=== PATIENT | male | born 2000 | race African-American/Black ===

== ENCOUNTER 2020-01-04 21:02 | Day surgery (SDC) | payer OTHER ==
--- NOTE | 2020-01-04 21:17 | PDOC ---
History of Present Illness - General Chief Complaint: Pain, Acute Stated Complaint: "I have Pain in my stomach that goes to my back" Time Seen by Provider: 01/04/20 21:10 History Source: Patient Exam Limitations: No Limitations - History of Present Illness Initial Comments: 01/04/20 21:38 19-year-old male who comes in complaining of intermittent gas pains in his stomach however no pain right now. In addition to that he is also complaining of some lower abdominal pain only when he urinates. Patient said he has history of similar pain in the past approximately 1 year ago and saw his primary care doctor who did an ultrasound and told him it might be kidney stones but did not see any evidence on ultrasound of kidney stones. In addition to that he said he had a ultrasound of his testicles to rule out torsion at that time. Patient denies any testicular pain at this time. Patient denies any fevers, chills, nausea vomiting or diarrhea. Says he is sexually active however he has never had sex without a condom and denies any penile discharge or history of STDs in the past. Allergies: as per nursing notes Past Medical History: none Social history: Lives with family. No smoking. No alcohol. No illicit drugs. Surgical history: None General: No fevers or chills, no weakness, no weight loss HEENT: No change in vision. No sore throat,. No ear pain CardioVascular: no chest discomfort. No shortness of breath Respiratory:No cough, or wheezing. Gastrointestinal: no nausea, vomiting, diarrhea or constipation, No rectal bleeding or lower abdominal pain with urination Genitourinary: No dysuria, hematuria, or frequency Musculoskeletal: No joint or muscle pain or swelling Neurologic: No headache, vertigo, dizziness or loss of consciousness Psychiatric: nor depression Skin: No rashes or easy bruising Endocrine: no increased thirst or abnormal weight change Allergic: no skin or latex allergy All other systems reviewed and normal Exam: General: Well-nourished well-developed individual, no acute distress HEENT: Throat: Normal, tonsils normal, no erythema or exudate Neck: Supple, no meningeal signs, no lymphadenopathy Eyes::Pupils equal reactive and round, extraocular motion intact Chest: Nontender to palpation Cardiac: S1-S2 normal, regular rate and rhythm, no murmurs rubs or gallops Respiratory: Lungs clear to auscultation bilateral Abdomen: Soft, nondistended, normal bowel sounds, there is some mild tenderness on palpation lower abdomen suprapubic area, and to the right of the suprapubic area. No guarding or rebound bowel sounds are normal : Uncircumcised male with normal lay patient work-up included a CAT scan that was read as high suspicion of acute appendicitis to the testicles, normal cremaster reflex, no tender nodes or masses palpated on exam of the testicles. No penile discharge, no lymphadenopathy no lesions of the genitals or penis. Extremities: Warm, dry, no cyanosis, clubbing, or edema Skin: No rashes Neuro: Alert and oriented x3, CN II - XII intact, nonfocal exam with normal strength, normal sensation, normal reflexes, normal gait, Psych: Normal mood and affect Assessment and plan: This is a 19-year-old male with lower abdominal pain. CBC, comp, and UA were sent 01/05/20 00:52 patient work-up included a CAT scan that was read as high suspicion of acute appendicit Past History - Medical History Allergies/Adverse Reactions: Allergies Allergy/AdvReac Type Severity Reaction Status Date / Time No Known Allergies Allergy Unverified 01/04/20 21:03 Home Medications: Ambulatory Orders NK [No Known Home Medication] 01/04/20 COPD: No Other medical history: denies - Immunization History Immunization Up to Date: Yes - Psycho-Social/Smoking History Smoking History: Never smoked - Substance Abuse Hx (Audit-C & DAST Scrn) How often the patient has a drink containing alcohol: Monthly or less Score: In Men: 4 or > Positive; In Women: 3 or > Positive: 1 Screen Result (Pos requires Nsg. Audit-10AR): Negative In the last yr the pt used illegal drug/Rx for NonMed reason: No Score: Yes response is considered Positive: 0 Screen Result (Positive result requires Nsg. DAST-10): Negative *Physical Exam - Vital Signs Last Vital Signs Temp Pulse Resp BP Pulse Ox 98.7 F 77 18 144/82 100 01/04/20 21:05 01/04/20 21:05 01/04/20 21:05 01/04/20 21:05 01/04/20 21:05 ED Treatment Course - LABORATORY CBC & Chemistry Diagram: 01/04/20 21:50 01/04/20 21:38 Discharge - Discharge Information Problems reviewed: Yes Clinical Impression/Diagnosis: Appendicitis Condition: Stable - Admission Yes - Follow up/Referral Referrals: Eric Black MD [Primary Care Provider] - - Patient Discharge Instructions - Post Discharge Activity
[2020-01-04 22:04] LABS: EOS % 0.3 % (0-4.5)
[2020-01-04 22:05] LABS: LYMPH % 10.3 % (8-40)
[2020-01-04 22:09] LABS: HEMATOCRIT 43.6 % (35.4-49); HEMOGLOBIN 14.8 GM/dl (11.7-16.9); MCH 30.1 pg (25.7-33.7); MCHC 33.9 g/dl (32.0-35.9); MEAN CELL VOLUME 88.8 fl (80-96); MEAN PLT VOLUME 8.8 fl (7.5-11.1); NEUT % 76.5 % (42.8-82.8); PLATELET COUNT 212 K/MM3 (134-434); RBC 4.91 M/mm3 (4.00-5.60); RDW 12.5 % (11.9-15.9)
[2020-01-04 22:10] LABS: BASO % 3.4 % (0-2.0); MONO % 9.5 % (3.8-10.2)
[2020-01-04 22:22] LABS: ALBUMIN 4.2 g/dl (3.4-5.0); BILIRUBIN,TOTAL 1.4 mg/dl (0.2-1); CALCIUM 9.3 mg/dl (8.5-10); CREATININE 1.3 mg/dl (0.55-1.3); POTASSIUM 3.7 mmol/L (3.5-5.1); TOT PROT 7.5 g/dl (6.4-8.2)
[2020-01-05] MEDS ORDERED: PIPERACILLIN/TAZOB 4.5 GM 4.5 GM in DEXTROSE 5%-WATER 100 ML IVPB ONE (00:44)
[2020-01-05] MEDS ORDERED: PIPERACILLIN/TAZOBACTAM 4.5 GM VIAL IVPB ONE (00:45)
[2020-01-05] MEDS ORDERED: morphine CARPU-JECT 2 MG/1 ML DISP.SYRIN IVPUSH ONE (00:51)
[2020-01-05] MEDS ORDERED: SODIUM CHLORIDE 1,000 ML IV ONE (00:51)
[2020-01-05] MEDS ORDERED: morphine SULFATE 4 MG/ML VIAL ONE (00:52)
[2020-01-05] MEDS ORDERED: ACETAMINOPHEN 1000 MG/100 ML VIAL (NON FORMULARY) IVPB PRN ×2 (01:20→18:39)
[2020-01-05] MEDS: LACTATED RINGERS SOLUTION 1,000 ML IV SCH ×2 (01:27→17:08)
--- OUTSIDE RECORDS SUMMARY | 2020-01-05 02:35 | XMS ---
:2000 Author Organization [facility] Support Name Relationship Address Phone VICKIE GONSALEZ FATHER [phone] [place] [address] OG Unavailable Unavailable Unavailable Re-disclosure Warning The records that you are about to access may contain information from federally- assisted alcohol or drug abuse programs. If such information is present, then the following federally mandated warning applies: This information has been disclosed to you from records protected by federal confidentiality rules (42 CFR part 2). The federal rules prohibit you from making any further disclosure of this information unless further disclosure is expressly permitted by the written consent of the person to whom it pertains or as otherwise permitted by 42 CFR part 2. A general authorization for the release of medical or other information is NOT sufficient for this purpose. The Federal rules restrict any use of the information to criminally investigate or prosecute any alcohol or drug abuse patient.The records that you are about to access may contain highly sensitive health information, the redisclosure of which is protected by Article 27-F of the [facility] Public Health law. If you continue you may haveaccess to information: Regarding HIV / AIDS; Provided by facilities licensed or operated by the [facility] Office of Mental Health; or Provided by the [facility] Office for People With Developmental Disabilities. If such information is present, then the following [facility] mandated warning applies: This information has been disclosed to you from confidential records which are protected by state law. State law prohibits you from making any further disclosure of this information without the specific written consent of the person to whom it pertains, or as otherwise permitted by law. Any unauthorized further disclosure in violation of state law may result in a fine or correction sentence or both. A general authorization for the release of medical or other information is NOT sufficient authorization for further disclosure. Insurance Providers Payer name Policy type Policy ID Covered Covered democrat's Policy P shara / Coverage democrat ID relationship to Sainz Inf ormation type sainz AETNA HMO [id number] SELF PAY SP INSURANCE
[2020-01-05 03:02] LABS: INR 1.31 (0.83-1.09); PROTHROMBIN TIME (PATIENT) 15.3 SEC (9.7-13.0)
[2020-01-05 04:24] VITALS: BMI 27.3
[2020-01-05 08:14] LABS: CALCIUM 9.2 mg/dl (8.5-10); CREATININE 1.4 mg/dl (0.55-1.3); POTASSIUM 4.1 mmol/L (3.5-5.1)
[2020-01-05 08:30] LABS: BASO % 0.4 % (0-2.0); EOS % 0.8 % (0-4.5); HEMATOCRIT 43.4 % (35.4-49); HEMOGLOBIN 14.1 GM/dl (11.7-16.9); LYMPH % 10.8 % (8-40); MCH 29.1 pg (25.7-33.7); MCHC 32.5 g/dl (32.0-35.9); MEAN CELL VOLUME 89.6 fl (80-96); MEAN PLT VOLUME 9.5 fl (7.5-11.1); MONO % 9.3 % (3.8-10.2); NEUT % 78.7 % (42.8-82.8); PLATELET COUNT 203 K/MM3 (134-434); RBC 4.84 M/mm3 (4.00-5.60); RDW 12.8 % (11.9-15.9)
[2020-01-05] MEDS ORDERED: PIPERACILLIN/TAZOB 3.375 GM 3.375 GM in DEXTROSE 5%-WATER - 50 ML IVPB SCH ×4 (09:00→19:00)
[2020-01-05] MEDS ORDERED: PIPERACILLIN/TAZOBACTAM 3.375 GM VIAL IVPB ONE ×3 (09:10→20:39)
[2020-01-05] MEDS ORDERED: DEXTROSE 5%-WATER - 50 ML IVPB ONE ×3 (09:10→20:39)
--- NOTE | 2020-01-05 09:39 | HP ---
CHIEF COMPLAINT: Abdominal pain PCP: Dr. Eric Black HISTORY OF PRESENT ILLNESS: 19 year-old male with no significant PMH presented to the ED for evaluation of intermittent stomach pain and lower abdominal pain on urination. Patient said he has history of similar pain in the past approximately 1 year ago and saw his primary care doctor who did an ultrasound and told him it might be kidney stones but did not see any evidence on ultrasound of kidney stones. In addition to that he said he had a ultrasound of his testicles to rule out torsion at that time. Patient denies any fevers, chills, nausea vomiting or diarrhea. Says he is sexually active however he has never had sex without a condom and denies any penile discharge or history of STDs in the past. ER course was notable for: (1) WBC 12.0k, afebrile Recent Travel: No PAST MEDICAL HISTORY: None reported PAST SURGICAL HISTORY: None reported Social History: [employer] student living in [facility] Smoking: no Alcohol: no Drugs: no Family history: reviewed and non-contributory Allergies No Known Allergies Allergy (Unverified 01/04/20 21:03) HOME MEDICATIONS: Home Medications Medication Instructions Recorded NK [No Known Home Medication] 01/04/20 REVIEW OF SYSTEMS CONSTITUTIONAL: Absent: fever, chills, diaphoresis, generalized weakness, malaise, loss of appetite, weight change HEENT: Absent: rhinorrhea, nasal congestion, throat pain, throat swelling, difficulty swallowing, mouth swelling, ear pain, eye pain, visual changes CARDIOVASCULAR: Absent: chest pain, syncope, palpitations, irregular heart rate, lightheadedness, peripheral edema RESPIRATORY: Absent: cough, shortness of breath, dyspnea with exertion, orthopnea, wheezing, stridor, hemoptysis GASTROINTESTINAL: +abdominal pain Absent: abdominal distension, nausea, vomiting, diarrhea, constipation, melena, hematochezia GENITOURINARY: Absent: dysuria, frequency, urgency, hesitancy, hematuria, flank pain, genital pain MUSCULOSKELETAL: Absent: myalgia, arthralgia, joint swelling, back pain, neck pain SKIN: Absent: rash, itching, pallor HEMATOLOGIC/IMMUNOLOGIC: Absent: easy bleeding, easy bruising, lymphadenopathy, frequent infections ENDOCRINE: Absent: unexplained weight gain, unexplained weight loss, heat intolerance, cold intolerance NEUROLOGIC: Absent: headache, focal weakness or paresthesias, dizziness, unsteady gait, seizure, mental status changes, bladder or bowel incontinence PSYCHIATRIC: Absent: anxiety, depression, suicidal or homicidal ideation, hallucinations. PHYSICAL EXAMINATION Vital Signs - 24 hr 01/04/20 01/05/20 01/05/20 21:05 02:09 04:08 Temperature 98.7 F 98.8 F 99 F Pulse Rate 77 80 Pulse Rate [ 76 Left] Respiratory 18 16 18 Rate Blood Pressure 144/82 135/69 Blood Pressure 132/75 [Right Arm] O2 Sat by Pulse 100 100 99 Oximetry (%) 01/05/20 06:27 Temperature 99.0 F Pulse Rate 72 Pulse Rate [ Left] Respiratory 18 Rate Blood Pressure 132/64 Blood Pressure [Right Arm] O2 Sat by Pulse 98 Oximetry (%) GENERAL: Awake, alert, and fully oriented, in no acute distress. HEAD: Normal with no signs of trauma. EYES: Pupils equal, round and reactive to light, extraocular movements intact, sclera anicteric, conjunctiva clear. No lid lag. EARS, NOSE, THROAT: Ears normal, nares patent, oropharynx clear without exudates. Moist mucous membranes. NECK: Normal range of motion, supple without lymphadenopathy, JVD, or masses. LUNGS: Breath sounds equal, clear to auscultation bilaterally. No wheezes, and no crackles. No accessory muscle use. HEART: Regular rate and rhythm, normal S1 and S2 without murmur, rub or gallop. ABDOMEN: Soft, mild lower abdominal tenderness R>L MUSCULOSKELETAL: Normal range of motion at all joints. No bony deformities or tenderness. No CVA tenderness. UPPER EXTREMITIES: 2+ pulses, warm, well-perfused. No cyanosis. No clubbing. No peripheral edema. LOWER EXTREMITIES: 2+ pulses, warm, well-perfused. No calf tenderness. No periph eral edema. NEUROLOGICAL: Cranial nerves II-XII intact. Normal speech. Laboratory Results - last 24 hr 01/04/20 01/04/20 01/04/20 21:38 21:50 22:08 WBC 12.0 H RBC 4.91 Hgb 14.8 Hct 43.6 MCV 88.8 MCH 30.1 MCHC 33.9 RDW 12.5 Plt Count 212 MPV 8.8 Absolute Neuts (auto) 9.3 Neutrophils % 76.5 Lymphocytes % 10.3 Monocytes % 9.5 Eosinophils % 0.3 Basophils % 3.4 H PT with INR INR Sodium 132 L Potassium 3.7 Chloride 97 L Carbon Dioxide 25 Anion Gap 10 BUN 10.0 Creatinine 1.3 Est GFR (CKD-EPI)AfAm 90.40 Est GFR (CKD-EPI)NonAf 78.00 Random Glucose 89 Calcium 9.3 Total Bilirubin 1.4 H AST 54 H ALT 69 H Alkaline Phosphatase 92 Total Protein 7.5 Albumin 4.2 Urine Color Yellow Urine Appearance Clear Urine pH 6.0 Urine Protein Trace Urine Glucose (UA) Negative Urine Ketones 2+ H Urine Blood Negative Urine Nitrite Negative Urine Bilirubin Negative Urine Urobilinogen 2.0 Ur Leukocyte Esterase Negative Blood Type Antibody Screen 01/05/20 01/05/20 01/05/20 01:17 01:17 07:18 WBC 10.0 RBC 4.84 Hgb 14.1 Hct 43.4 MCV 89.6 MCH 29.1 MCHC 32.5 RDW 12.8 Plt Count 203 MPV 9.5 Absolute Neuts (auto) 7.9 Neutrophils % 78.7 Lymphocytes % 10.8 Monocytes % 9.3 Eosinophils % 0.8 D Basophils % 0.4 PT with INR 15.30 H INR 1.31 H Sodium Potassium Chloride Carbon Dioxide Anion Gap BUN Creatinine Est GFR (CKD-EPI)AfAm Est GFR (CKD-EPI)NonAf Random Glucose Calcium Total Bilirubin AST ALT Alkaline Phosphatase Total Protein Albumin Urine Color Urine Appearance Urine pH Urine Protein Urine Glucose (UA) Urine Ketones Urine Blood Urine Nitrite Urine Bilirubin Urine Urobilinogen Ur Leukocyte Esterase Blood Type O POSITIVE Antibody Screen Negative 01/05/20 07:18 WBC RBC Hgb Hct MCV MCH MCHC RDW Plt Count MPV Absolute Neuts (auto) Neutrophils % Lymphocytes % Monocytes % Eosinophils % Basophils % PT with INR INR Sodium 133 L Potassium 4.1 Chloride 97 L Carbon Dioxide 24 Anion Gap 12 BUN 11.0 Creatinine 1.4 H Est GFR (CKD-EPI)AfAm 82.65 Est GFR (CKD-EPI)NonAf 71.31 Random Glucose 79 Calcium 9.2 Total Bilirubin AST ALT Alkaline Phosphatase Total Protein Albumin Urine Color Urine Appearance Urine pH Urine Protein Urine Glucose (UA) Urine Ketones Urine Blood Urine Nitrite Urine Bilirubin Urine Urobilinogen Ur Leukocyte Esterase Blood Type Antibody Screen ASSESSMENT/PLAN: 19 year-old male with no significant PMH admitted for acute appendicitis. Acute appendicitis --repeat CT with contrast is strongly suggestive of acute appendicitis --perioperative antibiotics ordered, ID following --COVID pending so patient needs to be transferred to [facility] for sugery; plan is to go to OR later today with Dr. Charleen CALVIN Fluids: LR@125mL/hr Electrolytes: replete as indicated Nutrition: NPO Dispo: awaiting transfer to [facility]. Full code. Family Medical History Family History: As Documented Visit type - Emergency Visit Emergency Visit: Yes ED Registration Date: 01/05/20 Care time: The patient presented to the Emergency Department on the above date and was hospitalized for further evaluation of their emergent condition. - New Patient This patient is new to me today: Yes Date on this admission: 01/05/20 - Critical Care Critical Care patient: No
[2020-01-05] MEDS ORDERED: MIDAZOLAM HCL 2 MG/2 ML SINGLE DOSE VIAL ONE (16:31)
[2020-01-05] MEDS ORDERED: fentaNYL CITRATE 250 MCG/5 ML VIAL ONE (16:31)
[2020-01-05] MEDS ORDERED: ROCURONIUM BROMIDE 50 MG/5 ML SYRINGE ONE ×2 (16:31→17:48)
[2020-01-05] MEDS ORDERED: PROPOFOL 20 ML ONE ×2 (16:31→17:49)
[2020-01-05] MEDS ORDERED: SUCCINYLCHOLINE CHLORIDE 200 MG/10 ML SYRINGE ONE (16:31)
[2020-01-05] MEDS ORDERED: PROMETHAZINE HCL 25 MG/1 ML VIAL IVPUSH PRN (17:22)
[2020-01-05] MEDS ORDERED: ONDANSETRON 4 MG/2 ML VIAL IVPUSH PRN ×2 (17:22→19:56)
[2020-01-05] MEDS ORDERED: LACTATED RINGERS SOLUTION 1,000 ML IV SCH ×2 (17:30→19:57)
[2020-01-05] MEDS ORDERED: BUPIVACAINE HCL/PF 0.5% (5MG/ML) 10 ML VIAL IJ ONE (17:43)
--- OUTSIDE RECORDS SUMMARY | 2020-01-05 17:43 | XMS ---
:2000 Author Organization [facility] Support Name Relationship Address Phone OG, STUDENT Unavailable Unavailable Unavailable [place] [address] OG Unavailable Unavailable Unavailable Re-disclosure Warning The [...] is protected by Article 27-F of the [facility] Public Health law. If you continue you may haveaccess to information: Regarding HIV / AIDS; Provided by facilities licensed or operated by the [facility] Office of Mental Health; or Provided by the [facility] Office for People With Developmental Disabilities. If such information is present, then the following [facility] mandated warning applies: This information has [...] law may result in a fine or retirement sentence or both. A general authorization for the release of medical or other information is NOT sufficient authorization for further disclosure. Insurance Providers Payer name Policy type Policy ID Covered Covered libertarian's Policy P shara / Coverage libertarian ID relationship to Sainz Inf ormation type sainz AETNA O [id number] SP [id number] SELF PAY SP INSURANCE
--- OUTSIDE RECORDS SUMMARY | 2020-01-05 17:44 | XMS ---
:[address] [facility] Support Name Relationship Address Phone OG, STUDENT Unavailable Unavailable Unavailable [place] [address] OG Unavailable Unavailable Unavailable Re-disclosure Warning The [...] is protected by Article 27-F of the [facility] Public Health law. If you continue you may haveaccess to information: Regarding HIV / AIDS; Provided by facilities licensed or operated by the [facility] Office of Mental Health; or Provided by the [facility] Office for People With Developmental Disabilities. If such information is present, then the following [facility] mandated warning applies: This information [...] law may result in a fine or longterm sentence or both. A general authorization for the release of medical or other information is NOT sufficient authorization for further disclosure. Insurance Providers Payer name Policy type Policy ID Covered Covered constitution party's Policy P shara / Coverage constitution party ID relationship to Sainz Inf ormation type sainz AETNA O [id number] SP [id number] SELF PAY SP INSURANCE
[2020-01-05] MEDS ORDERED: KETOROLAC TROMETHAMINE 30 MG/1 ML VIAL ONE (17:47)
[2020-01-05] MEDS ORDERED: DEXAMETHASONE SOD PHOSPHATE 4 MG/1 ML VIAL ONE (17:47)
[2020-01-05] MEDS ORDERED: NEOSTIGMINE METHYLSULFATE 0.5 MG/ML - 10 ML MDV ONE (17:53)
[2020-01-05] MEDS ORDERED: GLYCOPYRROLATE 0.2 MG/1 ML VIAL ONE (17:53)
--- NOTE | 2020-01-05 17:58 | PN ---
Progress Note (short form) - Note Progress Note: ID CONSULT DICTATED
--- NOTE | 2020-01-05 18:11 | OP ---
Operative Note - Note: Operative Date: 01/05/20 Pre-Operative Diagnosis: Acute appendicitis Operation: laparoscopic appendectomy Post-Operative Diagnosis: Same as Pre-op Surgeon: Mukesh Ernst Medication Aide: Helen Lee Anesthesia: General Estimated Blood Loss (mls): 5 Operative Report Dictated: Yes
--- NOTE | 2020-01-05 18:22 | SURG ---
Surgery Supervisor Home Economics Note Supervisor Home Economics: Helen Lee PA-C Date of Service: 01/05/20 Diagnosis: : Acute appendicitis Procedure: laparoscopic appendectomy I was present for the entirety of the operative procedure. For further detail, please refer to operative report. Visit type - Case Type Case Type: ED Admission - Emergency Emergency Visit: Yes Care time: The patient presented to the Emergency Department on the above date and was hospitalized for further evaluation of their emergent condition. - New patient This patient is new to me today: Yes Date on this admission: 01/05/20
[2020-01-05] MEDS ORDERED: ACETAMINOPHEN INJECTION 100 ML IVPB ONE (18:28)
[2020-01-05] MEDS ORDERED: ACETAMINOPHEN 1000 MG/100 ML VIAL (NON FORMULARY) IVPB ONE (18:34)
[2020-01-05] MEDS ORDERED: MORPHINE SULFATE 2 MG/ML VIAL IVPUSH PRN (19:52)
[2020-01-05] MEDS ORDERED: KETOROLAC TROMETHAMINE 30 MG/1 ML VIAL IVPUSH PRN (19:53)
[2020-01-05] MEDS ORDERED: oxyCODONE HCL 5 MG TABLET PO PRN (19:56)
[2020-01-05] MEDS: PIPERACILLIN/TAZOB 3.375 GM 3.375 GM in DEXTROSE 5%-WATER - 50 ML IVPB SCH (21:26)
[2020-01-05] MEDS: HEPARIN NA (PORCINE) 5,000 UNITS/ML 1ML VIAL SQ SCH (21:26)
[2020-01-06] MEDS: ACETAMINOPHEN 1000 MG/100 ML VIAL (NON FORMULARY) IVPB SCH ×3 (00:42→14:08)
[2020-01-06] MEDS ORDERED: PT OWN MED DRAWER 7, Y5N ONE (01:21)
[2020-01-06] MEDS ORDERED: DEXTROSE 5%-WATER - 50 ML IVPB ONE ×2 (03:32→10:46)
[2020-01-06] MEDS ORDERED: PIPERACILLIN/TAZOBACTAM 3.375 GM VIAL IVPB ONE ×2 (03:32→10:46)
[2020-01-06] MEDS: PIPERACILLIN/TAZOB 3.375 GM 3.375 GM in DEXTROSE 5%-WATER - 50 ML IVPB SCH ×2 (03:46→11:00)
--- NOTE | 2020-01-06 07:13 | CONS ---
DATE OF CONSULTATION: DATE OF DICTATION: 01/05/2020 INFECTIOUS DISEASE CONSULTATION HISTORY OF PRESENT ILLNESS: The patient is a 19-year-old male previously healthy who is evaluated for acute appendicitis. The patient was admitted to the hospital on January 05, 2020, with complaints of abdominal pain. The patient had developed acute abdominal pain localized to the suprapubic area and right lower quadrant. He described it as gas pain. He reports persistent pain and pain on urination. He presented to the emergency room, where he was evaluated. A CAT scan was performed of the abdomen and pelvis and was consistent with acute appendicitis. His course was complicated by mild elevated white blood cell count. He was seen in consultation by Surgery and was scheduled for an appendectomy. At the present time he is awake and alert. He has complaints of abdominal pain localized to the suprapubic and right lower quadrant area. He denies any nausea or vomiting. His last bowel movement was prior to admission. He denies any diarrhea. PAST MEDICAL HISTORY: Negative. ALLERGIES: No known allergies. MEDICATIONS: Include Zosyn, heparin, morphine, oxycodone. SOCIAL HISTORY: He resides at home in the community. He is a student. Nonsmoker, nondrinker. SYSTEMS REVIEW: Neurologic: No loss of consciousness, seizure activity, focal weakness. Cardiac: Negative chest pain or palpitations. Respiratory: Negative cough or sputum production. Gastrointestinal: Negative vomiting or diarrhea. Genitourinary: Negative for urinary tract infection. LABORATORY DATA: White count on admission 12.0, presently 10.0, hematocrit 43.4, platelets 206. Creatinine 1.4, total bilirubin 1.4, alkaline phosphatase 92, AST 52, ALT 67. Urinalysis negative. COVID-19 serology pending. Blood and urine cultures pending. CAT scan of the abdomen and pelvis shows findings consistent with acute appendicitis with no evidence of perforation or abscess formation. PHYSICAL EXAMINATION: General: He is awake and alert. He is not acutely toxic appearing. Vital Signs: Temperature is 99.1, blood pressure 161/73, pulse 73, regular, respiration 20 per minute. HEENT: Sclerae are anicteric. Cardiac: Heart sounds S1-S2. Lungs: Clear. Abdomen: Soft. There is slight tenderness to palpation diffusely. No rebound or rigidity. Extremities: Negative for edema. IMPRESSION: 1. Acute appendicitis. 2. Leukocytosis. RECOMMENDATIONS: Await culture results. Empiric antibiotic coverage with Zosyn. Patient for appendectomy. Will follow. Thank you for the kind referral. RK OBANDO M.D. THERESE/[id number]
--- NOTE | 2020-01-06 08:01 | PN ---
Progress Note (short form) - Note Progress Note: GENERAL SURGERY POD #1 s/p Lap appendectomy Alert. OOB and ambulating without assistance. Voiding spontaneously. Tolerating clear diet Denies n/v/f/c, CP, palpitations, SOB or LUZ. Afebrile. AVSS. Gen: nad ABD: all surgical ports c/d/i. LE: soft. supple. nt. Problem List - Problems (1) Appendicitis Assessment/Plan: POD #1 s/p Lap Appy diet advanced to regular. cleared for dc home after tolerates diet. f/u with Dr. Ernst as outlined in dc plan. above plan d/w my attending and agrees. On behalf of Dr. Ernst, thank you for the opportunity to participate in your patient's care Code(s): K37 - UNSPECIFIED APPENDICITIS
--- NOTE | 2020-01-06 09:35 | PN ---
Physical Exam: SUBJECTIVE: Patient seen and examined at bedside. Denies acute complaints. Tolerating oral intake without nausea or vomiting. Urinating without dysuria, or hematuria. Passing flatus. Endorses pain is well controlled. Denies subjective fevers, chills. OBJECTIVE: Vital Signs Period Temp Pulse Resp BP Sys/Bass Pulse Ox Last 24 Hr 97.7 F-99.1 F 56-98 14-21 116-161/51-73 95-100 GENERAL: The patient is awake, alert, and fully oriented, in no acute distress. HEAD: Normocephalic, atraumatic. EYES: PERRL, extraocular movements intact, sclera anicteric, conjunctiva clear. ENT: Oropharynx clear, without erythema or exudates. Moist mucous membranes. NECK: Trachea midline, full range of motion. Supple without lymphadenopathy. LUNGS: Breath sounds equal, clear to auscultation bilaterally. No wheezes, no crackles. No accessory muscle use. HEART: Regular rate and rhythm. S1, S2 without murmur, rub or gallop. ABDOMEN: Soft, nondistended, nontender to light and deep palpation x4 quadrants. No rebound tenderness, no guarding. Normoactive bowel sounds x4 quadrants. No hepatosplenomegaly, no masses appreciated. EXTREMITIES: 2+ radial, dorsalis pedis pulses bilaterally. Warm, well-perfused. No lower extremity edema bilaterally. NEUROLOGICAL: Cranial nerves II through XII grossly intact. Normal speech. No gross focal deficits. PSYCH: Normal mood, normal affect upon my encounter. SKIN: Warm, dry. Laparoscopic trochar sites clean, dry, intact. Laboratory Results - last 24 hr 01/05/20 01:17 COVID-19 (GRACIA) Not detected Active Medications Generic Name Dose Route Start Last Admin Trade Name Parthq PRN Reason Stop Dose Admin Acetaminophen 1,000 mg 01/06/20 01:00 01/06/20 06:00 Ofirmev Injection - IVPB 01/06/20 13:01 1,000 mg Q6H MAURICE Administration Heparin Sodium (Porcine) 5,000 unit 01/05/20 22:00 01/05/20 21:26 Heparin - SQ 5,000 unit BID MAURICE Administration Piperacillin Sod/Tazobactam 50 mls @ 100 mls/hr 01/05/20 20:00 01/06/20 03:46 Sod 3.375 gm/ Dextrose IVPB 01/06/20 19:59 100 mls/hr Q8H MAURICE Administration Protocol Lactated Ringer's 1,000 mls @ 125 mls/hr 01/05/20 19:57 01/05/20 20:05 Lactated Ringers Solution IV 125 mls/hr ASDIR MAURICE Administration Morphine Sulfate 2 mg 01/05/20 19:52 Morphine Sulfate IVPUSH Q4H PRN PAIN LEVEL 7 - 10 Ondansetron HCl 4 mg 01/05/20 19:56 Zofran Injection IVPUSH Q6H PRN NAUSEA AND/OR VOMITING Oxycodone HCl 5 mg 01/05/20 19:56 01/05/20 21:45 Roxicodone - PO 5 mg Q6H PRN Administration PAIN LEVEL 4 - 6 ASSESSMENT/PLAN: Patient is a 19 year old male with no reported medical history presented with complaint of abdominal pain, admitted for acute appendicitis. Acute appendicitis -POD #1 s/p laparoscopic appendectomy with Dr. Villaseñor -Pain controlled with Acetaminophen, Oxycodone. Will discontinue Morphine to ensure transition to oral analgesics -Tolerating diet, passing flatus -Will confirm with ID regarding antibiotic duration. Does not appear there was abscess or perforation intraoperatively. Acute kidney injury -Suspect pre renal etiology. -Hydrating with IV Lactated Ringer's at 125mL/ hour -Patient voiding well without dysuria, or hematuria -Will repeat BMP today. If remains elevated, will obtain renal/ bladder ultrasound and Nephrology consult. Transaminitis -Currently denies abdominal pain. CT on admission did not reveal acute biliary dilation/ stones. -Obtain repeat labs, with direct bilirubin FEN -IV Lactated Ringer's at 125mL/ hour -Follow BMP -Regular diet Prophylaxis -Heparin 5000units subq Disposition -Continue care in medical surgical floor -Anticipate DC within 24 hours, pending repeat labs and resolution of WILLIAM, transaminitis Visit type - Emergency Visit Emergency Visit: Yes Care time: The patient presented to the Emergency Department on the above date and was hospitalized for further evaluation of their emergent condition. - New Patient This patient is new to me today: Yes Date on this admission: 01/06/20 - Critical Care Critical Care patient: No - Discharge Referral Referred to [facility] Med P.C.: No ATTENDING PHYSICIAN STATEMENT I saw and evaluated the patient. I reviewed the resident's note and discussed the case with the resident. I agree with the resident's findings and plan as documented. SUBJECTIVE: OBJECTIVE: ASSESSMENT AND PLAN:
[2020-01-06 10:00] LABS: HEMATOCRIT 40.9 % (35.4-49); HEMOGLOBIN 13.4 GM/dL (11.7-16.9); MCH 28.8 pg (25.7-33.7); MCHC 32.7 g/dl (32.0-35.9); MEAN CELL VOLUME 88.3 fl (80-96); MEAN PLT VOLUME 9.3 fl (7.5-11.1); PLATELET COUNT 213 K/MM3 (134-434); RBC 4.63 M/mm3 (4.00-5.60); RDW 13.3 % (11.9-15.9); WHITE BLOOD COUNT 11.1 K/mm3 (4.0-10.0)
[2020-01-06 10:31] LABS: ALBUMIN 2.9 g/dl (3.4-5.0); BILIRUBIN,TOTAL 1.3 mg/dL (0.2-1); BLOOD UREA NITROGEN 11.4 mg/dL (7-18); CALCIUM 9.1 mg/dL (8.5-10.1); CREATININE 1.4 mg/dL (0.55-1.3); MAGNESIUM 2.1 mg/dL (1.8-2.4); PHOSPHOROUS 4.7 mg/dL (2.5-4.9); POTASSIUM 4.6 mmol/L (3.5-5.1); TOT PROT 6.9 g/dl (6.4-8.2)
[2020-01-06] MEDS: HEPARIN NA (PORCINE) 5,000 UNITS/ML 1ML VIAL SQ SCH ×2 (10:54→21:12)
[2020-01-06 10:59] LABS: BILIRUBIN,DIRECT 0.5 mg/dL (0.0-0.2)
[2020-01-06] MEDS ORDERED: SODIUM CHLORIDE 1,000 ML IV SCH (12:15)
--- NOTE | 2020-01-06 13:57 | PN ---
Progress Note, Physician History of Present Illness: POD #1 LAPAROSCOPIC APPENDECTOMY DOING WELL NO C/O ABDOMINAL PAIN TOLERATED SOLID DIET NO N/V NO BM - Current Medication List Current Medications: Active Medications Heparin Sodium (Porcine) (Heparin -) 5,000 unit SQ BID MAURICE Last Admin: 01/06/20 10:54 Dose: Not Given Documented by: Piperacillin Sod/Tazobactam (Sod 3.375 gm/ Dextrose) 50 mls @ 100 mls/hr IVPB Q8H MAURICE; Protocol Stop: 01/06/20 19:59 Last Admin: 01/06/20 11:00 Dose: 100 mls/hr Documented by: Sodium Chloride (Normal Saline -) 1,000 mls @ 125 mls/hr IV ASDIR MAURICE Morphine Sulfate (Morphine Sulfate) 2 mg IVPUSH Q4H PRN PRN Reason: PAIN LEVEL 7 - 10 Ondansetron HCl (Zofran Injection) 4 mg IVPUSH Q6H PRN PRN Reason: NAUSEA AND/OR VOMITING Oxycodone HCl (Roxicodone -) 5 mg PO Q6H PRN PRN Reason: PAIN LEVEL 4 - 6 Last Admin: 01/05/20 21:45 Dose: 5 mg Documented by: - Objective Vital Signs: Vital Signs Temperature 98.2 F 01/06/20 10:52 Pulse Rate 71 01/06/20 10:52 Respiratory Rate 18 01/06/20 10:52 Blood Pressure 122/63 01/06/20 10:52 O2 Sat by Pulse Oximetry (%) 98 01/06/20 10:52 Constitutional: Yes: No Distress Eyes: Yes: Conjunctiva Clear Cardiovascular: Yes: Regular Rate and Rhythm, S1, S2 Respiratory: Yes: CTA Bilaterally Gastrointestinal: Yes: Normal Bowel Sounds, Soft. No: Tenderness Edema: No Labs: CBC, BMP 01/06/20 09:20 01/06/20 09:20 INR, PTT INR 1.31 (0.83-1.09) H 01/05/20 01:17 Assessment/Plan POD#1 APPENDECTOMY DOING WELL SUBSTITUTE AUGMENTIN 875MG PO BID X 7D
--- NOTE | 2020-01-06 16:15 | CONSULT ---
Consult Consult Specialty:: Nephrology Reason for Consultation:: hyponatremia and elevated blood or blood bank technician - History of Present Illness Chief Complaint: abd pain History of Present Illness: Pt is a 19 year old make with no pmhx who presents to the ER with abd pain. He was found to have appendicitis. He was take to the OR for appendectomy. He was found to have hyponatremia and I was called to evaluate him. He was also found to have elevated blood or blood bank technician. He says that he did not eat for a few days before admission secondary to abd pain. He denies shortness of breath, fever or chills. He was taking creatine and protein supplements in addition to eating regular food daily. He denies dysuria or hematuria. He denies personal or family hx of kidney disease. - History Source History Provided By: Patient - Smoking History Smoking history: Never smoked Home Medications - Allergies Allergies/Adverse Reactions: Allergies Allergy/AdvReac Type Severity Reaction Status Date / Time No Known Allergies Allergy Unverified 01/04/20 21:03 - Home Medications Home Medications: Ambulatory Orders Docusate Sodium [Colace] 100 mg PO BID #30 capsule 01/06/20 oxyCODONE HCL [Roxicodone -] 5 mg PO Q4H PRN #15 tablet MDD 6 01/06/20 Family Medical History Family History: Denies Review of Systems - Review of Systems Constitutional: reports: No Symptoms Eyes: reports: No Symptoms HENT: reports: No Symptoms Neck: reports: No Symptoms Cardiovascular: reports: No Symptoms Respiratory: reports: No Symptoms Gastrointestinal: reports: No Symptoms Genitourinary: reports: No Symptoms Musculoskeletal: reports: No Symptoms Integumentary: reports: No Symptoms Neurological: reports: No Symptoms Endocrine: reports: No Symptoms Hematology/Lymphatic: reports: No Symptoms Psychiatric: reports: No Symptoms Physical Exam Vital Signs: Vital Signs Temperature 97.5 F L 01/06/20 14:00 Pulse Rate 82 01/06/20 14:00 Respiratory Rate 18 01/06/20 14:00 Blood Pressure 120/68 01/06/20 14:00 O2 Sat by Pulse Oximetry (%) 98 01/06/20 14:00 Constitutional: Yes: Calm Eyes: Yes: Conjunctiva Clear HENT: Yes: Atraumatic Neck: Yes: Supple Cardiovascular: Yes: S1, S2 Respiratory: Yes: CTA Bilaterally Gastrointestinal: Yes: Normal Bowel Sounds, Soft, Other (surgical wounds open to air) Renal/: Yes: WNL Musculoskeletal: Yes: WNL Edema: No Neurological: Yes: Oriented Psychiatric: Yes: Oriented Labs: CBC, BMP 01/06/20 09:20 01/06/20 09:20 Imaging - Results Ultrasound: Report Reviewed Problem List - Problems (1) Hyponatremia Code(s): E87.1 - HYPO-OSMOLALITY AND HYPONATREMIA (2) Appendicitis Code(s): K37 - UNSPECIFIED APPENDICITIS Assessment/Plan Current Medications Generic Name Dose Route Start Last Admin Trade Name Freq PRN Reason Stop Dose Admin Amoxicillin/Clavulanate Potassium 1 tab 01/06/20 17:30 Augmentin - 875mg Tablet PO BID@0800,1730 MAURICE Heparin Sodium (Porcine) 5,000 unit 01/05/20 22:00 01/06/20 10:54 Heparin - SQ Not Given BID MAURICE Sodium Chloride 1,000 mls @ 125 mls/hr 01/06/20 12:15 01/06/20 14:02 Normal Saline - IV 125 mls/hr ASDIR MAURICE Administration Morphine Sulfate 2 mg 01/05/20 19:52 Morphine Sulfate IVPUSH Q4H PRN PAIN LEVEL 7 - 10 Ondansetron HCl 4 mg 01/05/20 19:56 Zofran Injection IVPUSH Q6H PRN NAUSEA AND/OR VOMITING Oxycodone HCl 5 mg 01/05/20 19:56 01/05/20 21:45 Roxicodone - PO 5 mg Q6H PRN Administration PAIN LEVEL 4 - 6 IMpression 1. hyponatremia 2. acute appendicitis 3. elevated blood or blood bank technician 4. elevated pvr 5. creatine and protein use Plan - change fluids to ns - pt tolerating diet, cont to monitor - repeat labs in am - repeat bladder scan tomorrow to ensure voiding - hyponatremia may have been from hypotonic fluids - sodium is improving
[2020-01-06] MEDS: AMOX TR/POT CLAV 875MG/125MG TABLETS (FP) PO SCH (17:22)
[2020-01-07 07:41] LABS: HEMATOCRIT 36.6 % (35.4-49); HEMOGLOBIN 11.9 GM/dL (11.7-16.9); MCH 28.8 pg (25.7-33.7); MCHC 32.6 g/dl (32.0-35.9); MEAN CELL VOLUME 88.3 fl (80-96); MEAN PLT VOLUME 9.1 fl (7.5-11.1); PLATELET COUNT 208 K/MM3 (134-434); RBC 4.15 M/mm3 (4.00-5.60); RDW 13.3 % (11.9-15.9); WHITE BLOOD COUNT 7.4 K/mm3 (4.0-10.0)
[2020-01-07 08:02] LABS: ALBUMIN 2.7 g/dl (3.4-5.0); BILIRUBIN,TOTAL 0.6 mg/dL (0.2-1); BLOOD UREA NITROGEN 10.3 mg/dL (7-18); CALCIUM 8.9 mg/dL (8.5-10.1); PHOSPHOROUS 2.9 mg/dL (2.5-4.9); TOT PROT 6.1 g/dl (6.4-8.2)
[2020-01-07] MEDS: AMOX TR/POT CLAV 875MG/125MG TABLETS (FP) PO SCH (08:46)
[2020-01-07] MEDS: HEPARIN NA (PORCINE) 5,000 UNITS/ML 1ML VIAL SQ SCH (10:36)
--- NOTE | 2020-01-07 12:59 | PN ---
Progress Note, Physician History of Present Illness: Pt seen and examined at bedside. He is awake and alert. He denies fever or chills. He denies abd pain. - Current Medication List Current Medications: Active Medications Amoxicillin/Clavulanate Potassium (Augmentin - 875mg Tablet) 1 tab PO BID@0800,1730 [facility] Last Admin: 01/07/20 08:46 Dose: 1 tab Documented by: Heparin Sodium (Porcine) (Heparin -) 5,000 unit SQ BID [facility] Last Admin: 01/07/20 10:36 Dose: Not Given Documented by: Ondansetron HCl (Zofran Injection) 4 mg IVPUSH Q6H PRN PRN Reason: NAUSEA AND/OR VOMITING Oxycodone HCl (Roxicodone -) 5 mg PO Q6H PRN PRN Reason: PAIN LEVEL 4 - 6 Last Admin: 01/05/20 21:45 Dose: 5 mg Documented by: - Objective Vital Signs: Vital Signs Temperature 98.4 F 01/07/20 05:42 Pulse Rate 60 01/07/20 05:42 Respiratory Rate 18 01/07/20 05:42 Blood Pressure 123/61 01/07/20 05:42 O2 Sat by Pulse Oximetry (%) 98 01/07/20 05:42 Constitutional: Yes: Calm Eyes: Yes: Conjunctiva Clear HENT: Yes: Atraumatic Neck: Yes: Supple Cardiovascular: Yes: S1, S2 Respiratory: Yes: CTA Bilaterally Gastrointestinal: Yes: Soft Genitourinary: Yes: WNL Musculoskeletal: Yes: WNL Edema: No Neurological: Yes: Oriented Psychiatric: Yes: Oriented Labs: CBC, BMP 01/07/20 06:40 01/07/20 06:40 INR, PTT INR 1.31 (0.83-1.09) H 01/05/20 01:17 Problem List - Problems (1) Hyponatremia Code(s): E87.1 - HYPO-OSMOLALITY AND HYPONATREMIA (2) Appendicitis Code(s): K37 - UNSPECIFIED APPENDICITIS Assessment/Plan Current Medications Generic Name Dose Route Start Last Admin Trade Name Freq PRN Reason Stop Dose Admin Amoxicillin/Clavulanate Potassium 1 tab 01/06/20 17:30 01/07/20 08:46 Augmentin - 875mg Tablet PO 1 tab BID@0800,1730 [facility] Administration Heparin Sodium (Porcine) 5,000 unit 01/05/20 22:00 01/07/20 10:36 Heparin - SQ Not Given BID MAURICE Ondansetron HCl 4 mg 01/05/20 19:56 Zofran Injection IVPUSH Q6H PRN NAUSEA AND/OR VOMITING Oxycodone HCl 5 mg 01/05/20 19:56 01/05/20 21:45 Roxicodone - PO 5 mg Q6H PRN Administration PAIN LEVEL 4 - 6 IMpression 1. hyponatremia 2. acute appendicitis 3. elevated broadcast operations technician 4. elevated pvr 5. creatine and protein use 6. dehydration Plan - sodium improved - broadcast operations technician is improved - instructed pt to avoid creatine supplements - pt is voiding without difficulty - can follow as outpt as needed - bladder scan shows 20 cc pvr
--- NOTE | 2020-01-07 13:52 | PN ---
Teaching Attending Note Name of Resident: Lesvia Vazquez ATTENDING PHYSICIAN STATEMENT I saw and evaluated the patient. I reviewed the resident's note and discussed the case with the resident. I agree with the resident's findings and plan as documented. SUBJECTIVE: no pain, no fever ro chills, no N.V . had BM, tolerated diet ( eating lunch ) OBJECTIVE: NAd, awake, alert, pleasant CV: RRR, no MRG Lungs: CTAB Abd:soft, NT, ND, nl BS . 3 small incisions at laparoscopic sites. no erythema or edema or tenderness at sites. No stitches ASSESSMENT AND PLAN: 19 y/o man with no PMH who presented with abd pain and was found to have acute appendicitis and WILLIAM and LFTs abn 1- Acute appendicitis s/p appendectomy 2- WILLIAM resolved 3- Abnormal LFTs, resolved plan : - cont Augmentin x 1 week - f/u with surgery in 1 week - oral hydration - asked him to avoid protein and over the counter supplements - f/u with PCP in 1 week - instructed to call MD or come to ER with abd distention, worsening pain, severe constipation, fever or vomiting. dc home
--- NOTE | 2020-01-07 15:06 | DS ---
Physical Exam: SUBJECTIVE: Patient seen and examined at bedside. One solid BM last night, passing gas, tolerating regular diet. OBJECTIVE: Vital Signs Period Temp Pulse Resp BP Sys/Bass Pulse Ox Last 24 Hr 98.4 F-98.7 F 60-65 18-18 123-139/59-61 98-98 PHYSICAL EXAM GENERAL: The patient is awake, alert, and fully oriented, in no acute distress. HEAD: Normal with no signs of trauma. EYES: PERRL, extraocular movements intact, sclera anicteric, conjunctiva clear. ENT: Ears normal, nares patent, oropharynx clear without exudates, moist mucous membranes. NECK: Trachea midline, full range of motion, supple. LUNGS: Breath sounds equal, clear to auscultation bilaterally, no wheezes, no crackles, no accessory muscle use. HEART: Regular rate and rhythm, S1, S2 without murmur, rub or gallop. ABDOMEN: Soft, nontender, nondistended, normoactive bowel sounds, no guarding, no rebound,+ 3 laparoscopic incision sites EXTREMITIES: 2+ pulses, warm, well-perfused, no edema. NEUROLOGICAL: Cranial nerves II through XII grossly intact. Normal speech, gait not observed. PSYCH: Normal mood, normal affect. SKIN: Warm, dry, normal turgor, no rashes or lesions noted. LABS Laboratory Results - last 24 hr 01/06/20 01/06/20 01/07/20 14:33 14:33 06:40 WBC 7.4 RBC 4.15 Hgb 11.9 Hct 36.6 MCV 88.3 MCH 28.8 MCHC 32.6 RDW 13.3 Plt Count 208 MPV 9.1 Sodium Potassium Chloride Carbon Dioxide Anion Gap BUN Creatinine Est GFR (CKD-EPI)AfAm Est GFR (CKD-EPI)NonAf Random Glucose Calcium Phosphorus Magnesium Total Bilirubin AST ALT Alkaline Phosphatase Total Protein Albumin Ur Random Creatinine 36.0 Ur Random Sodium < 18 L Ur Random Potassium 18.0 L Ur Random Chloride < 11 L 01/07/20 06:40 WBC RBC Hgb Hct MCV MCH MCHC RDW Plt Count MPV Sodium 139 Potassium 4.0 Chloride 108 H Carbon Dioxide 26 Anion Gap 5 L BUN 10.3 Creatinine 1.0 Est GFR (CKD-EPI)AfAm 124.14 Est GFR (CKD-EPI)NonAf 107.11 Random Glucose 78 Calcium 8.9 Phosphorus 2.9 Magnesium 2.0 Total Bilirubin 0.6 AST 26 ALT 48 Alkaline Phosphatase 92 Total Protein 6.1 L Albumin 2.7 L Ur Random Creatinine Ur Random Sodium Ur Random Potassium Ur Random Chloride HOSPITAL COURSE: Date of Admission:01/05/20 19 Y M man with no significant PMH, presented to [facility] with abd pain, CT imaging revealed acute appendicitis, admitted to [facility] for laparoscopic appendectomy with Dr. Ernst, Post surgery he was found to have an WILLIAM and elevated LFTs. Acute appendicitis s/p appendectomy POD #2. WILLIAM resolved. Abnormal LFTs, resolved. Patient is medically and surgically stable for discharge at this time. He is advised to cont Augmentin x 1 week and to f/u with surgery in 1 week. He is discharged home with the following instructions, referrals and prescriptions Date of Discharge: 01/07/20 Minutes to complete discharge: 36 Discharge Summary Problems reviewed: Yes Reason For Visit: APPENDICITIS Condition: Improved - Instructions Diet, Activity, Other Instructions: YOUR VISIT You came to the hospital because you were experiencing abdominal pain. You were admitted to the hospital for care of these symptoms. Imaging of your abdomen showed evidence of appendicitis. You were treated with antibiotics and you had a laparoscopic (camera guided) surgery with Dr. Villaseñor to remove your appendix. You are now stable and may return home. You blood work reveled elevated creatinine, marker for kidney injury, most likely due to lack of enough water in your body (dehydration). You were treated with intravenous fluids and your creatinine decreased to normal value. It is important to avoid creatine supplements. While here, you were seen by a kidney specialist and an infectious disease specialist. Please follow up with your primary care doctor to repeat blood work within 1 week from today. MEDICATIONS Please continue to take your home medications as prescribed. You have *NEW* medications. - Please Take AUGMENTIN 875MG two times daily for 7 days to complete your antibiotic regimen - Please Take Colace 100mg two times a day for constipation - Please Take Roxicodone 5mg Q4H or as needed for pain management ADDITIONAL CARE Please make an appointment to see your primary care provider, Eric Rutledge, within 1 week from today to discuss the hospital course and to repeat labs. Please make an appointment to see your surgeon, Dr. Rodriguez, within 1-2 weeks to discuss the post surgical course. Please read the instructions from Dr. Rodriguez as listed below. Please make an appointment to see your concrete mixing truck driver, Dr. Duran. A referral has been provided. Please be sure to drink 2 liters of water every day. ADDITIONAL INFORMATION Please call 911 or come directly to the emergency department if you experience recurrence of the symptoms that brought you to the hospital, unusual headache, vision change, shortness of breath, chest pain, numbness, tingling, loss of alertness/awareness, loss of function, unusual bleeding or any alarming symptoms. Dear ALLAN GONSALEZ, Post Operative Instructions Physical activity Resume your normal everyday activity as tolerated no heavy lifting or exercise until seen by your surgeon. You may walk unlimited amounts of and climb stairs. You may resume driving the car when you feel safe and comfortable behind the wheel. ( but absolutely not while you are on oxycodone still ) Wound care You may shower starting tomorrow. When showering allow soap and water to run over the incision. Do not scrub, pat dry after showering. Diet There are no dietary restrictions. Eat healthy, high-fiber foods. Drink 6 to 8 glasses of liquid each day. This will assist in keeping your bowels are regular. Pain management You may take Tylenol or acetaminophen or Ibuprofen (for example, Motrin, Advil etc.) Any pain prescription medication ordered should be taken as prescribed for moderate to severe pain. Call Dr. Rodriguez for any of the following: Severe pain not relieved by medication Fever of 101 or higher Excessive bleeding or drainage on dressing Inability to urinate Call the office for a post operative appointment in 7 - 10 days. Referrals: Eric Black MD [Primary Care Provider] - 1 Week (f/u Hospital course) Rica Duran MD [Staff Physician] - Mukesh Ernst [Staff Physician] - 1 Week (s/p laparoscopic appendectomy) Disposition: HOME - Home Medications Comprehensive Discharge Medication List: Ambulatory Orders Docusate Sodium [Colace] 100 mg PO BID #30 capsule 01/06/20 oxyCODONE HCL [Roxicodone -] 5 mg PO Q4H PRN #15 tablet MDD 6 01/06/20 Amox-Tr/K Cl [Augmentin - 875Mg Tablet] 1 tab PO BID #14 tablet 01/07/20 This patient is new to me today: No Emergency Visit: Yes Care time: The patient presented to the Emergency Department on the above date and was hospitalized for further evaluation of their emergent condition. Critical Care patient: No - Discharge Referral Referred to [id number] Med P.C.: No ATTENDING PHYSICIAN STATEMENT I saw and evaluated the patient. I reviewed the resident's note and discussed the case with the resident. I agree with the resident's findings and plan as documented. SUBJECTIVE: OBJECTIVE: ASSESSMENT AND PLAN:
[2020-01-07 15:58] VITALS: BP 124/62; PULSE 68; TEMP 98.2
--- NOTE | 2020-01-07 19:22 | PATH ---
Surgical Pathology Report Patient Name: ALLAN GONSALEZ [facility]. Rec. #: [id number] /Age/Gender: 2000 (Age: 19) / M Account: [id number] Location: AMBULATORY SURG Taken: 01/05/2020 Received: 01/06/2020 Reported: 01/07/2020 Physicians: Mukesh Ernst M.D. Specimen(s) Received APPENDIX Clinical History Appendicitis Final Diagnosis APPENDIX, LAPAROSCOPIC APPENDECTOMY: ACUTE APPENDICITIS AND PERIAPPENDICITIS. ACUTE SEROSITIS. Electronically Signed Jacqueline Epstein M.D. Gross Description Received in formalin, labeled "appendix," is a 6 cm. in length vermiform appendix with a stapled margin of resection and moderate attached fat. The serosa is archuleta-pink with focal areas of exudate. No gross perforation identified. Sectioning reveals an unremarkable lumen. The wall of the appendix averages 0.2 cm. in thickness. Metalizing Machine Operator Automatic sections are submitted in one cassette. MLSShayan/01/07/2020 sankarly/01/07/2020
--- NOTE | 2020-01-08 13:42 | OP ---
DATE OF OPERATION: 01/06/2020 PREOPERATIVE DIAGNOSIS: Acute appendicitis. POSTOPERATIVE DIAGNOSIS: Acute appendicitis. PROCEDURE: Laparoscopic appendectomy. SURGEON: Mukesh Ernst MD LOGISTICS DIRECTOR: EDUARD Peralta COMPLICATIONS: None. Bleeding was minimal. Patient tolerated the procedure well. INDICATIONS: This is a young male, 19 years old, who presents with abdominal pain. CT scan confirmed evidence of acute appendicitis, and he was taken to the operating room for laparoscopic appendectomy. Risks, benefits were discussed with the patient. DESCRIPTION OF PROCEDURE: In the OR, he was placed in supine position. After the induction of general anesthesia, he was prepped and draped in the usual sterile fashion. The operation began with a periumbilical incision with a scalpel. Standard Cami approach was used to enter the peritoneal cavity and a 12-mm port inserted under direct vision. Insufflation to a pressure of 15 mmHg was accomplished, and a total of 3 ports, 2 more 5-mm ports introduced, one in the suprapubic position, one in the left lower quadrant. The patient was positioned then in the Trendelenburg position, and the appendix was then not easily visualized. The cecum was identified and followed the tinea all the way down to the appendix. This was hidden in the pelvis amongst some adhesions, and at this point it was then bluntly dissected to allow it to free from the adhesions and then brought into the field where the mesoappendix was divided with LigaSure. The appendix was mobilized over some lateral abdominal wall adhesions, and then the base of the appendix was divided with Endo LEXUS stapler, purple cartridge, and placed in EndoCatch bag. The pelvis was irrigated and suctioned appropriately, completely. The right upper quadrant and right lower quadrants were also irrigated and suctioned. Final inspection for hemostasis was performed. The appendix was placed in an EndoCatch bag and removed through the umbilical port. The ports were removed under direct vision. The fascia of the umbilicus was closed with 0 Vicryl sutures. The skin was closed with 4-0 Monocryl at all port sites. Dermabond was applied, and the patient was returned to the recovery room awake and alert, in stable condition, tolerated the procedure well. Connor PATEL/[id number]
== END 2020-01-07 17:28 | disposition home or self-care (01) ==
LOC: FER 21:02 → FM/S 01-05 00:59 → UNDOADMIN 01-05 00:59 → FM/S 01-05 02:30 → UNDOADMIN 01-05 02:30 → J8W 01-05 16:17 → FM/S 01-05 16:17 → SUATTDRO 01-05 16:20 → JASUSAT 01-05 16:20 → J8W 01-05 16:20 → JASUSAT 01-05 17:39
PROVIDERS: ATTEND Internal Medicine
PROC: 0DTJ4ZZ Resection of Appendix, Percutaneous Endoscopic Approach (ICD-10-PCS; principal; 2020-01-05 16:55)
DX: K35.33 Acute appendicitis with perforation, localized peritonitis, and gangrene, with abscess (principal)
CPT/HCPCS: 36415; 74176-TC; 74177-TC; 76775-TC; 76856-TC; 80048; 80053; 81003; 82248; 82436; 82565; 83735; 84100; 84133; 84300; 85025; 85027; 85610; 86850; 86900; 86901; 87040; 87070; 87075; 87076; 87086; 87186; 87205; 88304-TC; 94760; 99285-25; C9803; J0131; J1644; Q9967; U0003